=== PATIENT | female | born 1975 | race Two or more races ===

== ENCOUNTER 2025-05-07 19:15 | Emergency (ER) | payer OTHER, SELFPAY ==
[~2025-05-07] VITALS: Ht 165.1 cm; Wt 107.7 kg
[2025-05-07] MEDS ORDERED: HYDR-4798 PO (21:17)
[2025-05-07] MEDS ORDERED: IBUP-1455 PO (21:17)
[2025-05-07] MEDS ORDERED: AUG875T PO (21:17)
--- NOTE | 2025-05-07 21:18 | ED.PDOC ---
Eye-HPI HPI Comments This patient is a 49-year-old morbidly obese female who arrives the ED today for evaluation of left-sided lower tooth pain for the past few days. Patient states the symptoms came on a couple of days ago and has worsened. Patient complains of some swelling in the left side of her lower face. Patient denies any fever nausea or vomiting. Vital signs were stable. Chief Complaint: Tooth Pain Time Seen by MD: 20:21 Primary Care Provider: Dr. 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 Family History Family History: Unknown Social History Smoker: Non-Smoker Alcohol: Denies ETOH Use Drugs: Denies Drug Use Lives In: Home Constitutional: denies: chills, diaphoresis, fatigue, fever, malaise, sweats, weakness, others EENTM: reports: others (Left-sided lower dental pain); denies: blurred vision, double vision, ear bleeding, ear discharge, ear drainage, ear pain, ear ringing, eye pain, eye redness, hearing loss, mouth pain, mouth swelling, nasal discharge, nose bleeding, nose congestion, nose pain, photophobia, tearing, throat pain, throat swelling, voice changes Respiratory: denies: cough, hemoptysis, orthopnea, SOB at rest, shortness of breath, SOB with excertion, stridor, wheezing, others Cardiovascular: denies: chest pain, dizzy spells, diaphoresis, Dyspnea on exertion, edema, irregular heart beat, left arm pain, lightheadedness, palpitations, PND, syncope, others Gastrointestinal: denies: abdomen distended, abdominal pain, blood streaked bowels, constipated, diarrhea, dysphagia, difficulty swallowing, hematemesis, melena, nausea, poor appetite, poor fluid intake, rectal bleeding, rectal pain, vomiting, others Genitourinary: denies: abnormal vagina bleeding, burning, dyspareunia, dysuria, flank pain, frequency, hematuria, incontinence, pain, , vagina discharge, urgency, others Neurological: denies: dizziness, fainting, headache, left sided numbness, left sided weakness, numbness, paresthesia, pre-existing deficit, right sided numbness, right sided weakness, seizure, speech problems, tingling, tremors, weakness, others Musculoskeletal: denies: back pain, gout, joint pain, joint swelling, muscle pain, muscle stiffness, neck pain, others Integumetry: denies: bruises, change in color, change in hair/nails, dryness, laceration, lesions, lumps, rash, wounds, others Allergic/Immunocompromised: denies: Difficulty Healing, Frequent Infections, Hives, Itching, others Hematologic/Lymphatic: denies: anemia, blood clots, easy bleeding, easy bruising, swollen glands, others Endocrine: denies: excessive hunger, excessive sweating, excessive thirst, excessive urination, flushing, intolerance to cold, intolerance to heat, unexplained weight gain, unexplained weight loss, others Psychiatric: denies: anxiety, bipolar disorder, depression, hopeless, panic disorder, schizophrenia, sleepless, suicidal, others Physical Exam General Appearance: Moderate Distress (Moderate distress due to dental pain concerns.), Obese HEENT: Pharynx Normal, TMs Normal, Other (Patient displays a dental leonor on tooth 18 that appears to be going into the mandible. Localized erythema and edema it extends lightly into the left side jaw line. No discharge.) Neck: Full Range of Motion, Non-Tender, Normal, Normal Inspection Respiratory: Chest Non-Tender, Lungs Clear, No Accessory Muscle Use, No Respiratory Distress, Normal Breath Sounds Cardiovascular: No Edema, No JVD, No Murmur, No Gallop, Normal Peripheral Pulses, Regular Rate/Rhythm Breast Exam: Deferred Gastrointestinal: No Organomegaly, Non Tender, No Pulsatile Mass, Normal Bowel Sounds, Soft Genitalia: Deferred Pelvic: Deferred Rectal: Deferred Extremities: No calf tenderness, Normal capillary refill, Normal inspection, Normal range of motion, Non-tender, No pedal edema Neurologic: Alert, No Motor Deficits, Normal Affect, Normal Mood, No Sensory Deficits Cerebellar Function: NOT DONE Reflexes: NOT DONE Skin: Dry, Normal Color, Warm Lymphatic: No Adenopathy Was a procedure done? Was a procedure done?: No EENT DIFF Eye: N/A Mouth: Other (Dental leonor, dental abscess, dental fracture) X-Ray, Labs, Meds, VS Vital Signs Date Time Temp Pulse Resp B/P (MAP) Pulse Ox O2 Delivery O2 Flow Rate FiO2 05/07/25 19:16 97.6 68 16 98/73 95 97.6 X-Ray, Labs, Meds, VS Comment Patient was provided with anti inflammation medications, narcotics and antibiotics prior to discharge. Advised patient utilize antibiotics as directed and follow up with dentist for definitive evaluation and management. Time of 1ST Reevaluation: 21:15 Reevaluation 1ST: Improved Consultation: PCP, Other (Dentist) Patient Education/Counseling: Diagnosis, Treatment Family Education/Counseling: Diagnosis, Treatment SEPSIS Sepsis Screen Date sepsis recognized/suspect: May 07, 2025 Time Sepsis recognized/suspect: 1920 Recent Procedure: No On Antibiotic Therapy: No Respiratory Rate >20: No Heart Rate >90: No Temp<36 C (96.8 F) or >38.3 C: No SBP <90 or MAP <65 mmHG: No New Acute Mental Status Change: No Is the patient on CPAP, BIPAP,: No Vital Signs Date Time Temp Pulse Resp B/P (MAP) Pulse Ox O2 Delivery O2 Flow Rate FiO2 05/07/25 19:16 97.6 68 16 98/73 95 97.6 Departure 1 Departure Time of Disposition: 21:15 Impression: Primary Impression: Dental abscess Disposition: HOME / SELF CARE / HOMELESS Condition: Stable Additional Instructions: Advised patient utilize antibiotics as directed until completion as well as pain medication as needed. Patient needs to follow up with dentist for definitive evaluation and management of her dental abscess. e-Prescriptions Hydrocodone-Acetaminophen (Hydrocodone Bitartrate/AC 10-325 mg) 1 Tab Tab 1 TAB PO Q8HP PRN, #12 TAB Prov: RAFAEL KRISHNAMURTHY PAC 05/07/25 Ibuprofen Micronized (Ibuprofen) 800 Mg Tab 800 MG PO Q8HP PRN, #20 TAB Prov: RAFAEL KRISHNAMURTHY PAC 05/07/25 Amoxicillin & Pot Clavulanate (AUGMENTIN TABLET) 875 Mg Tb 875 MG PO BID for 10 Days, #20 TAB Prov: RAFAEL KRISHNAMURTHY PAC 05/07/25 Discharged With: Self, Friend Critical Care Note Critical Care Time?: No Stability Stability form required: No Heart Score Heart Score: Heart Score Response (Comments) Value History N/A 0 EKG N/A 0 Age N/A 0 Risk Factors N/A 0 Troponin N/A 0 Total 0 RAFAEL KRISHNAMURTHY PAC May 07, 2025 21:18
[2025-05-07] MEDS: AMOXICILLIN/CLAVUL 875 MG TAB PO ONE (22:31)
[2025-05-07] MEDS: KETOROLAC TROMETH 60MG/2ML VIAL IM ONE (22:31)
[2025-05-07] MEDS: HYDROcodone-ACET 10/325MG TAB PO ONE (22:32)
[2025-05-07 22:39] VITALS: BP 126/59; PULSE 67; RESP 20; TEMP 97.8; O2SAT 97
== END 2025-05-07 23:07 | disposition home or self-care (01) ==
LOC: ER 19:23
DX: K04.7 Periapical abscess without sinus (principal); E66.01 Morbid (severe) obesity due to excess calories; F32.A Depression, unspecified; Z98.890 Other specified postprocedural states; Z68.39 Body mass index [BMI] 39.0-39.9, adult
CPT/HCPCS: 96372; 99283; J1885